=== PATIENT | male | born 1950 | race Caucasian/White ===

== ENCOUNTER → 2018-05-22 07:16 | Outpatient (CLI) | payer MEDICARE, SELFPAY ==
--- NOTE | 2018-05-22 07:34 | RAD_ITS ---
STUDY: X-RAY CHEST REASON FOR EXAM: Male, 67 years old. Cough, COPD TECHNIQUE: PA and lateral views of the chest. COMPARISON: None. FINDINGS: There is hyperinflation of the lungs consistent with chronic obstructive lung disease (COPD). There is no demonstrated pleural abnormality. Normal size heart. Normal mediastinum and chaka. Normal visualized pulmonary arteries. There are calcified plaques of the aortic arch. Normal visualized thoracic spine. Normal visualized ribs, clavicles, and shoulders. There is no demonstrated abnormality of the visualized soft tissue structures of the upper abdomen. RAD/Chest PA and Lateral IMPRESSION: Findings consistent with COPD. Calcified plaques of the aortic arch. No acute cardiopulmonary disease process is seen. Electronically Signed: Dickson Doherty MD at 16:54 EST , Service support ,
--- OUTSIDE RECORDS SUMMARY | 2018-08-23 12:32 | XMS RPT_ITS ---
:1950 Author Organization [facility] Care Team Providers Name Role Phone Jacques Shane Attending Unavailable Jacques Shane Referring Unavailable Jacques Shane Primary Care Unavailable PROBLEMS PROBLEMS DATE TYPE CONDITION / CODE ATTENDING STATUS SOURCE 06/14/2018 Unknown J44.1 - Chronic Jacques Shane Active [facility] with (acute) Repository exacerbation / J44.1(ICD-10) PROCEDURES PROCEDURES No Procedure Records FoundRESULTS RESULTS CHEST PA AND LATERAL Observed: 05/22/2018 Status: F Source: [place] 7:35 AM [facility] REPOSITORY [facility] Imaging Services [address] [place] [address] Chest PA and Lateral MR#: [id number] Acct: [id number] Name: BRETT SALVADOR Rep #: [id number] : 1950 M 67 From: Dickson Doherty MD PCP: Jacques Shane MD Status: REG CLI Study: Chest PA and Lateral Date of Exam: 05/22/18 Exam# [id number] Ordering Dr: Jacques Shane MD STUDY: X-RAY CHEST REASON FOR EXAM: Male, 67 years old. Cough, COPD TECHNIQUE: PA and lateral views of the chest. COMPARISON: None. FINDINGS: There is hyperinflation of the lungs consistent with chronic obstructive lung disease (COPD). There is no demonstrated pleural abnormality. Normal size heart. Normal mediastinum and chaka. Normal visualized pulmonary arteries. There are calcified plaques of the aortic arch. Normal visualized thoracic spine. Normal visualized ribs, clavicles, and shoulders. There is no demonstrated abnormality of the visualized soft tissue structures of the upper abdomen. RAD/Chest PA and Lateral IMPRESSION: Findings consistent with COPD. Calcified plaques of the aortic arch. No acute cardiopulmonary disease process is seen. Electronically Signed: Dickson Doherty MD at 16:54 EST , Service support , CC: Jacques Shane MD Embedded Linux Developer: Signed ALLERGIES ALLERGIES No Allergies Records FoundENCOUNTERS ENCOUNTERS ADMIT/DISCHARGE ACCOUNT ADMITTING ENCOUNTER LOCATION SOURCE NUMBER CLASS 05/22/[id number] ing:HPRAD Repository PAYERS PAYERS ENCOUNTER GUARANTOR PAYER SUBSCRIBER SOURCE 05/22/2018 BRETT [id number] Primary [facility] Insurance:JEREMYA CARMELA DUGANOB: [place] [id number] [facility] [facility] [id number] [address]Ayk: (907) 04/05/18Policy Number: Repository [phone] ) [id number] Date:[id number] [address] [place] [id number]: 05/22/2018 [facility] Number: Effective Repository Date:2018-05-22
== END ==
PROVIDERS: Family Provider Family Medicine; PCP Family Medicine; Referring Provider Family Medicine; Visit Provider Family Medicine
DX: J44.1 Chronic obstructive pulmonary disease with (acute) exacerbation (principal)
CPT/HCPCS: 71046

== ENCOUNTER → 2022-12-29 | Outpatient (CLI) | payer MEDICARE, SELFPAY ==
[2022-12-29 12:07] LABS: Absolute Lymphocyte Count 2.27 X10^3/uL (0.83-4.51); Absolute Neutrophil Count 3.6 X10^3/uL (2.0-7.7); Basophil# 0.06 X10^3/uL; Basophil% 0.9 % (0-1); Eosinophil# 0.14 X10^3/uL; Eosinophils% 2.1 % (0-5); Hematocrit 39.1 % (40-54); Hemoglobin 12.8 g/dL (13.0-16.5); Lymphocyte # 2.27 X10^3/ul (0.83-4.51); Lymphocyte % 33.3 % (19-41); Mean Corp Hgb Conc 32.7 g/dL (32-36); Mean Corpuscular Hgb 32.7 pg (27.0-32.0); Mean Platelet Vol. 9.8 fl (6.2-12.0); Monocyte# 0.73 X10^3/uL; Monocyte% 10.7 % (0-10); NRBC Flagged by Analyzer 0 % (0-5); Neutrophil % 52.7 % (47-70); Platelet Count 279 K/mm3 (150-450); RBC Distribution Width CV 12.8 % (11.6-14.6); RBC Distribution Width SD 46.9 fl (35.1-43.9); Red Blood Count 3.91 M/mm3 (4.6-6.2); White Blood Count 6.8 K/mm3 (4.4-11.0)
[2022-12-29 12:47] LABS: ALB/GLOB Ratio 0.8 RATIO (0.9-2.4); AST(SGOT) 36 U/L (15-37); Alanine Aminotransfer ALT/SGPT 33 U/L (16-61); Albumin, Serum 3.6 g/dL (3.2-5.0); Alkaline Phosphatase 52 U/L (45-117); Anion Gap 9 (5-15); BUN 24 mg/dL (7-18); BUN/Creat Ratio 21.6 RATIO (10-20); Calcium,Total 8.9 mg/dL (8.5-10.1); Chloride 107 mmol/L (98-107); Creatinine, Serum 1.11 mg/dL (0.70-1.30); EST Glomerular Filtration Rate 70 mL/min (>60); Est Glom Filt Rate - Afr Amer 84 mL/min (>60); Globulin 4.5 g/dL (2.2-4.2); Glucose 99 mg/dL (74-106); Potassium 4.3 mmol/L (3.5-5.1); Protein, Total 8.1 g/dL (6.4-8.2); Sodium Level 138 mmol/L (136-145); Thyroid Stim Hormone (TSH) 0.37 uIU/mL (0.358-3.74)
[2022-12-29 12:58] LABS: Microalbumin:Creatinine Ratio 40.6 mg/g CRE (<30 mg/g CRE)
== END | disposition home or self-care (01) ==
PROVIDERS: PCP Family Medicine; Visit Provider Family Medicine
DX: J44.9 Chronic obstructive pulmonary disease, unspecified (principal); I10 Essential (primary) hypertension
CPT/HCPCS: 36415; 80053; 82043; 82570; 84443; 85025

== ENCOUNTER → 2023-09-28 | Outpatient (CLI) | payer MEDICARE, SELFPAY ==
[2023-09-28 18:07] LABS: Vitamin B12 491 pg/mL (211-911)
[2023-09-28 19:24] LABS: Creatinine, Serum 1.08 mg/dL (0.70-1.30); EST Glomerular Filtration Rate 72 mL/min (>60); Est Glom Filt Rate - Afr Amer 87 mL/min (>60); Ferritin 269 ng/mL (26-388)
[2023-09-29 15:24] LABS: Microalbumin,Random Urine 28.6 mg/L (NO RANGE EST.); Microalbumin:Creatinine Ratio 18.5 mg/g CRE (<30 mg/g CRE)
== END | disposition home or self-care (01) ==
LOC: MFPLAB 14:22
PROVIDERS: PCP Family Medicine; Visit Provider Family Medicine
DX: D64.9 Anemia, unspecified (principal); I10 Essential (primary) hypertension; R80.9 Proteinuria, unspecified
CPT/HCPCS: 36415; 82043; 82565; 82570; 82607; 82728; 82746

== ENCOUNTER → 2024-08-29 | Outpatient (CLI) | payer MEDICARE, SELFPAY ==
[2024-08-29 10:19] LABS: Absolute Lymphocyte Count 1.86 X10^3/uL (0.83-4.51); Absolute Neutrophil Count 3.6 X10^3/uL (2.0-7.7); Basophil# 0.06 X10^3/uL; Basophil% 0.9 % (0-1); Eosinophil# 0.14 X10^3/uL; Eosinophils% 2.2 % (0-5); Hematocrit 37.1 % (40-54); Hemoglobin 12.5 g/dL (13.0-16.5); Lymphocyte # 1.86 X10^3/ul (0.83-4.51); Lymphocyte % 28.8 % (19-41); Mean Corp Hgb Conc 33.7 g/dL (32-36); Mean Corpuscular Hgb 33.2 pg (27.0-32.0); Mean Corpuscular Volume 98.4 fL (80-94); Mean Platelet Vol. 9.6 fl (6.2-12.0); Monocyte# 0.81 X10^3/uL; Monocyte% 12.5 % (0-10); NRBC Flagged by Analyzer 0 % (0-5); Neutrophil # 3.58 X10^3/uL (2.7-7.7); Neutrophil % 55.4 % (47-70); Platelet Count 303 K/mm3 (150-450); RBC Distribution Width CV 12.4 % (11.6-14.6); RBC Distribution Width SD 44.6 fl (35.1-43.9); Red Blood Count 3.77 M/mm3 (4.6-6.2); White Blood Count 6.5 K/mm3 (4.4-11.0)
[2024-08-29 10:57] LABS: Cholesterol 177 mg/dL (<=200); Creatinine, Serum 0.98 mg/dL (0.70-1.20); EST Glomerular Filtration Rate 83 (>60); High Density Lipoprotein 41 mg/dL; Low Density Lipoprotein Calc. 100 mg/dL; PSA,Total - Annual Screen 0.31 ng/mL (0.02-4.00); Triglycerides 183 mg/dL; Very Low Density Lipoprotein 37 mg/dL (5-40); cholesterol:hdl ratio screen 4.33
[2024-08-29 11:56] LABS: Microalbumin,Random Urine 20.5 mg/L (NO RANGE EST.); Microalbumin:Creatinine Ratio 151.9 mg/g CRE
== END | disposition home or self-care (01) ==
PROVIDERS: PCP Family Medicine; Referring Provider Family Medicine; Visit Provider Family Medicine
DX: I10 Essential (primary) hypertension (principal); D64.9 Anemia, unspecified; Z12.5 Encounter for screening for malignant neoplasm of prostate
CPT/HCPCS: 36415; 80061; 82043; 82565; 82570; 84153; 85025; G0103

== ENCOUNTER → 2025-04-16 | Outpatient (CLI) | payer MEDICARE, SELFPAY ==
--- OUTSIDE RECORDS SUMMARY | 2025-04-16 09:47 | XMS RPT_ITS | CCD ---
Author Organization [facility] Inform ion Partnership [facility] Care Team Providers Care Oncology Rep Specialist Name Role Phone Acosta MEDINA, Dr. Hanna Primary Care Provider [phone] Acosta MEDINA, Dr. Hanna Attending Provider Acosta MEDINA, Dr. Hanna Referring Provider Jacques Shane Attending Unavailable Jacques Shane Referring Unavailable Jacques Shane Primary Care Unavailable Jacques Shane Attending Unavailable Jacques Shane Referring Unavailable Jacques Shane Primary Care Unavailable Problems Problem Classification Problem Date Documented Da te Episodic/Chronic Essential hypertension (1 source) Essential (primary) hypertension; Translations: [Essential (primary) hypertension] Onset: 09-03-2024 Chronic Substance-related disorders (1 source) Nicotine dependence, cigarettes, uncomplicated; Translations: [Nicotine dependence, cigarettes, uncomplicated] Onset: 10-10-2024 Chronic Results Test Name Value Interpretation Reference Range Facility Microalb:Creat Ratio,Random URon 11-21-2024 MALB:CREAT 15.2 mg/g CRE Normal [facility] Comment on above: Result Comment: AMENDED REPORT 11/21/24 0816 MALB:CREAT previously reported as: 151.9 mg/g CRE Performed By: #### L 500.4100, L502.0250, L100.0100, L501.1105, L501.9910 #### [facility] [address] [place], [place], [id number] Absolute neutrophil countOrd ered By: Jacques Shane on 08-29-2024 Neutrophils (Bld) [#/Vol] 3.6 10*3/uL 2.0-7.7 [facility] Albumin DL <= 20 mg/L (U) [M ass/Vol]Ordered By: Jacques Shaen on 08-29-2024 Urine Random Microalbumin 20.5 mg/L NO RANGE E [facility] Basophil percentageOrdered B y: Jacques Shane on 08-29-2024 Basophils/100 WBC (Bld) 0.9 % 0-1 [facility] CBC W/Diff, Automatedon 08-04 Absolute Lymph 1.86 X10 3/uL Normal 0.83-4.51 [facility] Comment on above: Performed By: #### L 500.4100, L502.0250, L100.0100, L501.1105, L501.9910 #### [facility] [address] [place], [address] Absolute Neut 3.6 X10 3/uL Normal 2.0-7.7 [facility] Comment on above: Performed By: #### L 500.4100, L502.0250, L100.0100, L501.1105, L501.9910 #### [facility] [address] [place], [address] Basophils/100 WBC (Bld) 0.9 % Normal 0-1 [facility] Comment on above: Performed By: #### L 500.4100, L502.0250, L100.0100, L501.1105, L501.9910 #### [facility] [address] [place], [address] Eosinophils/100 WBC (Bld) 2.2 % Normal 0-5 [facility] Comment on above: Performed By: #### L 500.4100, L502.0250, L100.0100, L501.1105, L501.9910 #### [facility] [address] [place], [address] Erythrocyte distribution width (RBC) [Ratio] 12.4 % Normal 11.6-14.6 [facility] Comment on above: Performed By: #### L 500.4100, L502.0250, L100.0100, L501.1105, L501.9910 #### [facility] [address] [place], [address] Hematocrit (Bld) [Volume fraction] 37.1 % Low 40-54 [facility] Comment on above: Performed By: #### L 500.4100, L502.0250, L100.0100, L501.1105, L501.9910 #### [facility] [address] [place], [address] Hemoglobin (Bld) [Mass/Vol] 12.5 g/dL Low 13.0-16.5 [facility] Comment on above: Performed By: #### L 500.4100, L502.0250, L100.0100, L501.1105, L501.9910 #### [facility] [address] [place], [address] IG% 0.200 Normal 0.0-0.9 [facility] Comment on above: Result Comment: IG% - Immature Granulocytes (promyelocytes, myelocytes and metamyelocytes) > 1% indicates that a LEFT SHIFT is Present. Performed By: #### L 500.4100, L502.0250, L100.0100, L501.1105, L501.9910 #### [facility] [address] [place], [address] Lymphocytes/100 WBC (Bld) 28.8 % Normal 19-41 [facility] Comment on above: Performed By: #### L 500.4100, L502.0250, L100.0100, L501.1105, L501.9910 #### [facility] [address] [place], [address] MCH (RBC) [Entitic mass] 33.2 pg High 27.0-32.0 [facility] Comment on above: Performed By: #### L 500.4100, L502.0250, L100.0100, L501.1105, L501.9910 #### [facility] [address] [place], [address] MCHC (RBC) [Mass/Vol] 33.7 g/dL Normal 32-36 [facility] Comment on above: Performed By: #### L 500.4100, L502.0250, L100.0100, L501.1105, L501.9910 #### [facility] [address] [place], [address] MCV (RBC) [Entitic vol] 98.4 fL High 80-94 [facility] Comment on above: Performed By: #### L 500.4100, L502.0250, L100.0100, L501.1105, L501.9910 #### [facility] [address] [place], [address] Monocytes/100 WBC (Bld) 12.5 % High 0-10 [facility] Comment on above: Performed By: #### L 500.4100, L502.0250, L100.0100, L501.1105, L501.9910 #### [facility] [address] [place], [address] Neutrophils/100 WBC (Bld) 55.4 % Normal 47-70 [facility] Comment on above: Performed By: #### L 500.4100, L502.0250, L100.0100, L501.1105, L501.9910 #### [facility] [address] [place], [address] Nucleated RBC (Bld) [#/Vol] 0 10*3/uL Normal 0-5 [facility] Comment on above: Performed By: #### L 500.4100, L502.0250, L100.0100, L501.1105, L501.9910 #### [facility] [address] [place], [address] Platelet mean volume (Bld) [Entitic vol] 9.6 fL Normal 6.2-12.0 [facility] Comment on above: Performed By: #### L 500.4100, L502.0250, L100.0100, L501.1105, L501.9910 #### [facility] [address] [place], [address] Platelets (Bld) [#/Vol] 303 10*3/uL Normal 150-450 [facility] Comment on above: Performed By: #### L 500.4100, L502.0250, L100.0100, L501.1105, L501.9910 #### [facility] [address] [place], [address] RBC (Bld) [#/Vol] 3.77 10*6/uL Low 4.6-6.2 [facility] Comment on above: Performed By: #### L 500.4100, L502.0250, L100.0100, L501.1105, L501.9910 #### [facility] [address] [place], [address] RDW SD 44.6 fl High 35.1-43.9 [facility] Comment on above: Performed By: #### L 500.4100, L502.0250, L100.0100, L501.1105, L501.9910 #### [facility] [address] [place], [address] WBC (Bld) [#/Vol] 6.5 10*3/uL Normal 4.4-11.0 [facility] Comment on above: Performed By: #### L 500.4100, L502.0250, L100.0100, L501.1105, L501.9910 #### [facility] [address] [place], [address] Calculated very low density lipoprotein (VLDL) cholesterol measurementOrdered By: Jacques Shane on 08-29-2024 VLDL Cholesterol 37 mg/dL 5-40 [facility] Creatinine Unsp time (U) [Ma ss/Vol]Ordered By: Jacques Shane on 08-29-2024 Creatinine (U) [Mass/Vol] 135.00 mg/dL 39.00-25 9.00 [facility] Eosinophil percentageOrdered By: Jacques Shane on 08-29-2024 Eosinophils/100 WBC (Bld) 2.2 % 0-5 [facility] Erythrocyte distribution wid th ratioOrdered By: Jacques Shane on 08-29-2024 Erythrocyte distribution width (RBC) [Ratio] 12.4 % 11.6-14.6 [facility] Erythrocyte distribution wid th standard deviationOrdered By: Jacques Shane on 08-29-2024 Erythrocyte distribution width (RBC) [Entitic vol] 44.6 fL High 35.1-43.9 [facility] GFR/1.73 sq M.predicted fausto g non-blacks MDRD (S/P/Bld) [Vol rate/Area]Ordered By: Jacques Shane on 08-29-2024 Estimated GFR (MDRD) Non-Af Amer 83 >60 [facility] Comment on above: mL/min/1.73m2 CKD-EP I Creatinine Equation (2020) Hematocrit Auto (Bld) [Volum e fraction]Ordered By: Jacques Shane on 08-29-2024 Hematocrit (Bld) [Volume fraction] 37.1 % Low 40-54 [facility] Hemoglobin measurementOrdere d By: Jacques Shane on 08-29-2024 Hemoglobin (Bld) [Mass/Vol] 12.5 g/dL Low 13.0-16.5 [facility] Immature granulocytes/100 WB C Auto (Bld)Ordered By: Jacques Shane on 08-29-2024 Immature granulocytes/100 WBC (Bld) 0.200 % 0.0-0.9 [facility] Comment on above: IG% - Immature Granu locytes (promyelocytes, myelocytes and metamyelocytes) > 1% indicates that a LEFT SHIFT is Present. LDL calc ser/plasOrdered By: Jacques Shane on 08-29-2024 LDL Cholesterol, Calculated 100 mg/dL [facility] Comment on above: Xvhwatgoch=514-480 m g/dL & Higher Dqve=256 mg/dL or greater Lipid Profileon 08-29-2024 CHOL:HDL 4.33 Normal [facility] Comment on above: Performed By: #### L 500.4100, L502.0250, L100.0100, L501.1105, L501.9910 #### [facility] [address] [place], [address] Cholesterol [Mass/Vol] 177 mg/dL Normal <=200 [facility] Comment on above: Result Comment: Chol esterol level, Desirable <200 mg/dL Borderline high cholesterol 200-239 mg/dL High cholesterol >=240 mg/dL Recommendations of the NCEP Adult Treatment Panel for the following risk-cutoff thresholds for the [place] population. Performed By: #### L 500.4100, L502.0250, L100.0100, L501.1105, L501.9910 #### [facility] [address] [place], [address] Cholesterol in HDL [Mass/Vol] 41 mg/dL Normal [facility] Comment on above: Result Comment: Kierra onal Cholesterol Education Program (NCEP) guidelines: <40 mg/dL: Low HDL-cholesterol (major risk factor for CHD) >= 60 mg/dL: High HDL-cholesterol (negative risk factor for CHD) HDL-cholesterol is affected by a number of factors, e.g. smoking, exercise, hormones, sex and age. Performed By: #### L 500.4100, L502.0250, L100.0100, L501.1105, L501.9910 #### [facility] [address] [place], [address] Cholesterol in LDL [Mass/Vol] 100 mg/dL Normal [facility] Comment on above: Result Comment: Bord xjpacq=698-206 mg/dL Higher Ufkc=785 mg/dL or greater Performed By: #### L 500.4100, L502.0250, L100.0100, L501.1105, L501.9910 #### [facility] [address] [place], [address] Cholesterol in VLDL [Mass/Vol] 37 mg/dL Normal 5-40 [facility] Comment on above: Performed By: #### L 500.4100, L502.0250, L100.0100, L501.1105, L501.9910 #### [facility] [address] [place], [address] Triglyceride [Mass/Vol] 183 mg/dL Normal [facility] Comment on above: Result Comment: The drugs N-Acetylcysteine and Metamizole may falsely depress this assay. Normal range: <150 mg/dL Borderline High: 150-199 mg/dL High: 200-499 mg/dL Very High: >500 mg/dL Performed By: #### L 500.4100, L502.0250, L100.0100, L501.1105, L501.9910 #### [facility] [address] [place], [address] Lymphocytes Auto (Unsp spec) [#/Vol]Ordered By: Jacques Shane on 08-29-2024 Lymphocytes (Bld) [#/Vol] 1.86 10*3/uL 0.83-4.5 1 [facility] Lymphocytes/100 WBC Auto (Un sp spec)Ordered By: Jacques Shane on 08-29-2024 Lymphocytes/100 WBC (Bld) 28.8 % 19-41 [facility] MCV (mean corpuscular volume ) determinationOrdered By: Jacques Shane on 08-29-2024 MCV (RBC) [Entitic vol] 98.4 fL High 80-94 [facility] Mean corpuscular hemoglobin (MCH) determinationOrdered By: Jacques Shane on 08-29-2024 MCH (RBC) [Entitic mass] 33.2 pg High 27.0-32.0 [facility] Mean corpuscular hemoglobin concentration (MCHC) determinationOrdered By: Jacques Shane on 08-29-2024 MCHC (RBC) [Mass/Vol] 33.7 g/dL 32-36 [facility] Mean platelet volume determi nationOrdered By: Jacques Shane on 08-29-2024 Platelet mean volume (Bld) [Entitic vol] 9.6 fL 6.2-12.0 [facility] Microalbumin/creat ratio urO rdered By: Jacques Shane on 08-29-2024 Urine Microalbumin/Creatinine Ratio 151.9 mg/g CRE [facility] Monocyte percentageOrdered B y: Jacques Shane on 08-29-2024 Monocytes/100 WBC (Bld) 12.5 % High 0-10 [facility] Neutrophil percentageOrdered By: Jacques Shane on 08-29-2024 Neutrophils/100 WBC (Bld) 55.4 % 47-70 [facility] Nucleated red blood cell per centageOrdered By: Jacques Shane on 08-29-2024 Nucleated RBC/100 WBC (Bld) [Ratio] 0 % 0-5 [facility] PSA, total screeningOrdered By: Jacques Shane on 08-29-2024 Prostate Specific Antigen Screen 0.31 ng/mL 0.02-4.00 [facility] Comment on above: This test was perfor med using the [employer] tPSA method. Measured values of a patient sample can vary depending on the testing procedure used. PSA values determined on patient samples by different testing procedures cannot be used interchangeably. If there is a change in PSA assays while monitoring therapy, sequential testing should be performed to confirm baseline values. PSA,Total - Annual Screenon 08-29-2024 PSA,TOT SCREEN 0.31 ng/mL Normal 0.02-4.00 [facility] Comment on above: Result Comment: This test was performed using the [employer] tPSA method. Measured values of a patient??sample can vary depending on the testing procedure used. PSA values determined on patient samples by different testing procedures cannot be used interchangeably. If there is a change in PSA assays while monitoring therapy, sequential testing should be performed to confirm baseline values. Performed By: #### L 500.4100, L502.0250, L100.0100, L501.1105, L501.9910 #### [facility] [address] [place], [address] Platelet countOrdered By: Davonte Shane on 08-29-2024 Platelets (Bld) [#/Vol] 303 10*3/uL 150-450 [facility] RBC Auto (Bld) [#/Vol]Ordere d By: Jacques Shane on 08-29-2024 RBC (Bld) [#/Vol] 3.77 10*6/uL Low 4.6-6.2 [facility] Screening total cholesterol/ high density lipoprotein (HDL) cholesterol ratioOrdered By: Jacques Shane on 08-29-2024 Cholesterol.total/Cholest kash in HDL [Mass ratio] 4.33 {ratio} [facility] Serum Creatinine AND GFRon 0 08-29-2024 Creatinine [Mass/Vol] 0.98 mg/dL Normal 0.70-1.20 [facility] Comment on above: Performed By: #### L 500.4100, L502.0250, L100.0100, L501.1105, L501.9910 #### [facility] [address] [place], [place], [id number] GFR/1.73 sq M.predicted among non-blacks MDRD (S/P/Bld) [Vol rate/Area] 83 mL/min/{1.73_m2} Normal >60 [facility] Comment on above: Result Comment: mL/m in/1.73m2 CKD-EPI Creatinine Equation (2020) Performed By: #### L 500.4100, L502.0250, L100.0100, L501.1105, L501.9910 #### [facility] [address] [place], [place], [address] Serum creatinine measurement (mass/volume)Ordered By: Jacques Shane on 08-29-2024 Creatinine [Mass/Vol] 0.98 mg/dL 0.70-1.20 [facility] Serum or plasma cholesterol in HDL measurement (mass/volume)Ordered By: Jacques Shane on 08-29-2024 Cholesterol in HDL [Mass/Vol] 41 mg/dL >40 [facility] Comment on above: National Cholesterol Education Program (NCEP) guidelines:<40 mg/dL: Low HDL-cholesterol (major risk factor for CHD)>= 60 mg/dL: High HDL-cholesterol (negative risk factor for CHD)HDL-cholesterol is affected by a number of factors, e.g. smoking, exercise, hormones, sex and age. Serum or plasma cholesterol measurement (mass/volume)Ordered By: Jacques Shane on 08-29-2024 Cholesterol [Mass/Vol] 177 mg/dL <[address] [facility] Comment on above: Cholesterol level, D esirable <200 mg/dLBorderline high cholesterol 200-239 mg/dLHigh cholesterol >=240 mg/dLRecommendations of the NCEP Adult Treatment Panel for the following risk-cutoff thresholds for the [place] population. Triglycerides measurementOrd ered By: Jacques Shane on 08-29-2024 Triglyceride [Mass/Vol] 183 mg/dL <199 [facility] Comment on above: The drugs N-Acetylcy steine and Metamizole may falsely depress this assay. Normal range: <150 mg/dLBorderline High: 150-199 mg/dLHigh: 200-499 mg/dLVery High: >500 mg/dL White blood cell (WBC) count Ordered By: Jacques Shane on 08-29-2024 WBC (Bld) [#/Vol] 6.5 10*3/uL 4.4-11.0 [facility] - Chemistry and C hemistry - challengeOrdered By: Jacques Shane on 09-28-2023 Cobalamin (Vitamin B12) [Mass/Vol] 491 pg/mL 211-911 [facility] Ferritin [Mass/Vol] 269 ng/mL 26-388 [facility] No Panel InformationOrdered By: Jacques Shane on 09-28-2023 Urine Microalbumin/Creatinine Ratio 18.5 mg/g CRE <30 [facility] Estimated GFR (MDRD) Amer 87 mL/min >60 [facility] Comment on above: GFR Calc Estimated GFR (MDRD) Non-Af Amer 72 mL/min >60 [facility] Comment on above: Non- GFR Calc Folate 23.90 ng/mL 3.1-55.4 [facility] Serum or plasma creatinine m easurement (mass/volume)Ordered By: Jacques Shane on 09-28-2023 Creatinine [Mass/Vol] 1.08 mg/dL 0.70-1.30 [facility] Comment on above: The validity of the calculated GFR & GFRAA in patients over 70 years has not been determined. Clinical correlation is essential. Thin prep Papanicolaou smear with manual screeningOrdered By: Jacques Shane on 09-28-2023 Thin prep Papanicolaou smear with manual screening 28.6 mg/L NO RANGE EST. [facility] Urine creatinine measurement (mass/volume)Ordered By: Jacques Shane on 09-28-2023 Creatinine (U) [Mass/Vol] 155.00 mg/dL NO RANGE EST. [facility] Absolute lymphocyte countOrd ered By: Jacques Shane on 12-29-2022 Lymphocytes Auto (Unsp spec) [#/Vol] 2.27 10*3/uL 0.83-4.51 [facility] Basophil percentageOrdered B y: Jacques Shane on 12-29-2022 Basophils/100 WBC (Bld) 0.9 % 0-1 [facility] Bilirubin [Mass/Vol] 0.40 mg/dL 0.20-1.00 [facility] Comment on above: For patients on eltr ombopag therapy, use of Dimension [place] TBIL is not recommended. Chloride [Moles/Vol] 107 mmol/L 98-107 [facility] Eosinophils/100 WBC (Bld) 2.1 % 0-5 [facility] Glucose [Mass/Vol] 99 mg/dL 74-106 [facility] Neutrophils (Bld) [#/Vol] 3.6 10*3/uL 2.0-7.7 [facility] Neutrophils/100 WBC (Bld) 52.7 % 47-70 [facility] Potassium [Moles/Vol] 4.3 mmol/L 3.5-5.1 [facility] Protein [Mass/Vol] 8.1 g/dL 6.4-8.2 [facility] Sodium [Moles/Vol] 138 mmol/L 136-145 [facility] WBC (Bld) [#/Vol] 6.8 10*3/uL 4.4-11.0 [facility] Blood erythrocytes count (nu mber/volume)Ordered By: Jacques Shane on 12-29-2022 RBC (Bld) [#/Vol] 3.91 10*6/uL 4.6-6.2 [facility] Blood hemoglobin measurement (mass/volume)Ordered By: Jacques Shane on 12-29-2022 Hemoglobin (Bld) [Mass/Vol] 12.8 g/dL 13.0-16.5 [facility] Blood lymphocytes/100 leukoc ytesOrdered By: Jacques Shane on 12-29-2022 Lymphocytes/100 WBC (Bld) 33.3 % 19-41 [facility] Blood monocytes/100 leukocyt esOrdered By: Jacques Shane on 12-29-2022 Monocytes/100 WBC (Bld) 10.7 % 0-10 [facility] Blood platelet mean volumeOr dered By: Jacques Shane on 12-29-2022 Platelet mean volume (Bld) [Entitic vol] 9.8 fL 6.2-12.0 [facility] Determination of erythrocyte mean corpuscular volume (MCV)Ordered By: Jacques Shane on 12-29-2022 MCV (RBC) [Entitic vol] 100.0 fL 80-94 [facility] Hematocrit Auto (Bld) [Volum e fraction]Ordered By: Jacques Shane on 12-29-2022 Hematocrit (Bld) [Volume fraction] 39.1 % 40-54 [facility] - Chemistry and C hemistry - challengeOrdered By: Jacques Shane on 12-29-2022 ALP [Catalytic activity/Vol] 52 U/L 45-117 [facility] ALT [Catalytic activity/Vol] 33 U/L 16-61 [facility] CO2 [Moles/Vol] 22.0 mmol/L 21.0-32.0 [facility] Globulin (S) [Mass/Vol] 4.5 g/dL 2.2-4.2 [facility] Urea nitrogen/Creatinine [Mass ratio] 21.6 mg/mg 10-20 [facility] - Hematology and Cell countsOrdered By: Jacques Shane on 12-29-2022 Erythrocyte distribution width (RBC) [Entitic vol] 46.9 fL 35.1-43.9 [facility] Erythrocyte distribution width (RBC) [Ratio] 12.8 % 11.6-14.6 [facility] Immature granulocytes/100 WBC (Bld) 0.300 % 0.0-0.9 [facility] Comment on above: IG% - Immature Granu locytes (promyelocytes, myelocytes and metamyelocytes) > 1% indicates that a LEFT SHIFT is Present. MCH (RBC) [Entitic mass] 32.7 pg 27.0-32.0 [facility] Nucleated RBC/100 WBC (Bld) [Ratio] 0 % 0-5 [facility] MCHC Auto (RBC) [Mass/Vol]Or dered By: Jacques Shane on 12-29-2022 MCHC (RBC) [Mass/Vol] 32.7 g/dL 32-36 [facility] No Panel InformationOrdered By: Jacques Shane on 12-29-2022 Estimated GFR (MDRD) Amer 84 mL/min >60 [facility] Comment on above: GFR Calc Estimated GFR (MDRD) Non-Af Amer 70 mL/min >60 [facility] Comment on above: Non- GFR Calc Thyroid Stimulating Hormone (TSH) 0.37 uIU/mL 0.358-3.74 [facility] Urine Microalbumin/Creatinine Ratio 40.6 mg/g CRE <30 [facility] Platelets bldOrdered By: Tanvi Shane on 12-29-2022 Platelets (Bld) [#/Vol] 279 10*3/uL 150-450 [facility] Serum or plasma albumin pina urement (mass/volume)Ordered By: Jacques Shane on 12-29-2022 Albumin [Mass/Vol] 3.6 g/dL 3.2-5.0 [facility] Serum or plasma albumin/glob ulin mass ratioOrdered By: Jacques Shane on 12-29-2022 Albumin/Globulin [Mass ratio] 0.8 {ratio} 0.9-2.4 [facility] Serum or plasma calcium pina urement (mass/volume)Ordered By: Jacques Shane on 12-29-2022 Calcium [Mass/Vol] 8.9 mg/dL 8.5-10.1 [facility] Serum or plasma creatinine m easurement (mass/volume)Ordered By: Jacques Shane on 12-29-2022 Creatinine [Mass/Vol] 1.11 mg/dL 0.70-1.30 [facility] Comment on above: The validity of the calculated GFR & GFRAA in patients over 70 years has not been determined. Clinical correlation is essential. Serum or plasma urea nitroge n measurement (mass/volume)Ordered By: Jacques Shane on 12-29-2022 Urea nitrogen [Mass/Vol] 24 mg/dL 7-18 [facility] Thin prep Papanicolaou smear with manual screeningOrdered By: Jacques Shane on 12-29-2022 Thin prep Papanicolaou smear with manual screening 36 U/L 15-37 [facility] Thin prep Papanicolaou smear with manual screening 9 5-15 [facility] Thin prep Papanicolaou smear with manual screening 38.0 mg/L NO RANGE EST. [facility] Urine creatinine measurement (mass/volume)Ordered By: Jacques Shane on 12-29-2022 Creatinine (U) [Mass/Vol] 93.50 mg/dL NO RANGE EST. [facility] Encounters Encounter Date Encounter Type Care Provider Facility Start: 10-21-2024 ambulatory Jacques Shane Facility:[facility] Start: 08-29-2024 End: 08-29-[address] Jacques Shane MD Work Phone: [facility] Work Phone: Start: 08-29-2024 End: 08-29-[address] [facility] Start: 08-29-2024 End: 08-29-2024 ambulatory Jacques Shane Facility:[facility] Start: 09-28-2023 End: 09-28-2023 ambulatory [facility] Work Phone: Start: 09-28-2023 End: 09-28-2023 Patient encounter procedure [facility] Start: 12-29-2022 End: 12-29-2022 ambulatory [facility] Work Phone: Start: 12-29-2022 End: 12-29-2022 Patient encounter procedure [facility] Payers Date Payer Category Payer Private Health Insurance [id number] 2024 Self-pay [id number] Unknown [facility] [id number] Unknown [id number] Unknown [id number] Social History Date Type Detail [facility] Work Phone: Start: 1950 Sex Assigned At Male [facility] Tobacco smoking stat [facility] Unknown if ever smoked [facility] Work Phone: Start: 09-03-2024 Sex Male (finding) [facility] Evaluation note Note Date & Type Note Facility Evaluation note No assessment information availa ble [facility] [facility] Work Phone: Reason for referral (narrative) Note Date & Type Note Facility Reason for referral (narrative) No reason for referral information available [facility] Work Phone: Chief Complaint and Reason for Visit Chief Complaint Admit Date Anemia, hypertension August 29, 2024 8: 09am Summary Purpose Family History No Family History Records Found Advance Directives No Advanced Directives Records Found Additional Source Comments Care Teams (unrecognized sec tion and content) Team Status: Active Member Role Status Dates Dr. Jacques Shane MD Family Provider Active Dr. Jacques Shane MD Primary Care Provider Active Team Status: Inactive Member Role Status Dates Dr. Jacques Shane MD Primary Care Provider, Attending [place] Active Team Status: Inactive Member Role Status Dates Dr. Jacques Shane MD Primary Care Provider Active Start: August 29, 2024 End: August 29, 2024 Dr. Jacques Shane MD Attending Provider Active St art: August 29, 2024 End: August 29, 2024 Dr. Jacques Shane MD Referring Provider Active St art: August 29, 2024 End: August 29, 2024 Goals (unrecognized section and content) Goals may be documented in a n alternate sectionGoals may be documented in an alternate section (unrecognized sect ion and content) No Status Records Found INFORMATION SOURCE (unrecogn ized section and content) DATE CREATED AUTHOR 11/24/2024 [facility] FOR RECORDS PERTAINING TO PATIENTS WHO ARE OR HAVE BEEN ENROLLED IN A CHEMICAL DEPENDENCY/SUBSTANCEABUSE PROGRAM, SOME INFORMATION MAY BE OMITTED. This clinical summary was aggregated from multiple sources. Caution should be exercised in using it in the provision of clinical care. This summary normalizes information from multiple sources, and as a consequence, information in this document may materially change the coding, format and clinical context of patient data. In addition, data may be omitted in some cases. CLINICAL DECISIONS SHOULD BE BASED ON THE PRIMARY CLINICAL RECORDS. [employer] provides no warranty or guarantee of the accuracy or completeness of information in this document.
[2025-04-16 10:21] LABS: Hematocrit 36.6 % (40-54); Hemoglobin 12.4 g/dL (13.0-16.5); Mean Corp Hgb Conc 33.9 g/dL (32-36); Mean Corpuscular Volume 95.1 fL (80-94); Mean Platelet Vol. 9.4 fl (6.2-12.0); Platelet Count 306 K/mm3 (150-450); RBC Distribution Width CV 12.5 % (11.6-14.6); RBC Distribution Width SD 43.6 fl (35.1-43.9); Red Blood Count 3.85 M/mm3 (4.6-6.2); White Blood Count 8.1 K/mm3 (4.4-11.0)
[2025-04-16 10:41] LABS: AST(SGOT) 37 U/L (<=37); Alanine Aminotransfer ALT/SGPT 25 U/L (<=46); Albumin, Serum 4.4 g/dL (3.4-4.8); Alkaline Phosphatase 62 U/L (40-129); Anion Gap 12 (5-15); BUN 19 mg/dL (4-19); BUN/Creat Ratio 19.7 RATIO (10-20); Calcium,Total 9.7 mg/dL (7.6-11.0); Carbon Dioxide 22.0 mmol/L (21.0-32.0); Chloride 103 mmol/L (98-108); Globulin 3.6 g/dL (2.2-4.2); Glucose 97 mg/dL (70-99); Potassium 4.5 mmol/L (3.3-5.1)
== END | disposition home or self-care (01) ==
LOC: MFPLAB 08:46
PROVIDERS: PCP Family Medicine; Visit Provider Family Medicine
DX: I10 Essential (primary) hypertension (principal); J44.9 Chronic obstructive pulmonary disease, unspecified
CPT/HCPCS: 36415; 80053; 85027